=== PATIENT | male | born 1950 | race Caucasian/White ===

== ENCOUNTER 2020-12-04 15:12 | Emergency (ER) | payer MEDICARE, OTHER ==
[~2020-12-04] VITALS: Ht 157.5 cm; Wt 36.4 kg
[~2020-12-04 15:12] MED LIST: AMIT50TA3 PO; DOCU-350 PO; HYDR-4065 PO; SENN8.6T52 PO
[2020-12-04 15:39] VITALS: BP 86/56
[2020-12-04] MEDS ORDERED: SODIUM CHLORIDE 0.9% 1,000 ML IV ONE (15:45)
[2020-12-04 15:59] LABS: HEMATOCRIT 23.1 % (41-53); HEMOGLOBIN 7.4 g/dL (13.5-17.5); MEAN CORPUSCULAR HEMOGLOBIN 28.7 pg (26.0-34.0); MEAN CORPUSCULAR HGB CONC 32.1 G/dL (31.0-37.0); MEAN CORPUSCULAR VOLUME 90 fL (80-100); PLATELET COUNT (AUTO) 567 K/uL (150-450); RED BLOOD CELL COUNT(AUTO) 2.58 MIL/uL (4.50-5.90)
[2020-12-04] MEDS ORDERED: ASPIRIN 81 MG CHEWABLE TABLET PO ONE (16:15)
[2020-12-04] MEDS ORDERED: HEPARIN SODIUM,PORCINE 5,000 UNITS/ML VIAL IVP ONE (16:15)
[2020-12-04] MEDS ORDERED: HEPARIN SODIUM,PORCINE 5,000 UNITS/ML VIAL IVP PRN ×2 (16:15)
[2020-12-04] MEDS ORDERED: HEPARIN SODIUM 25000 UNITS/D5W 250 ML IV PRN (16:15)
[2020-12-04 16:25] LABS: B-TYPE NATRIURETIC PEPTIDE 169 pg/mL (0-100)
[2020-12-04] MEDS ORDERED: ASPIRIN 300 MG RECTAL SUPPOSITORY PR ONE (16:30)
[2020-12-04 16:34] LABS: COVID AG,FIA SOURCE NASOPHARYNGEAL
[2020-12-04 16:36] LABS: BAND NEUTROPHILS % (MANUAL) 30 % (0-5); LYMPHOCYTES % (MANUAL) 3 % (22-44); MONOCYTES % (MANUAL) 3 % (2-9); SEGMENTED NEUTROPHILS % 64 % (40-70)
[2020-12-04 16:45] LABS: ANION GAP 15 mmol/L (8-16); CALCIUM, TOTAL 8.6 mg/dL (8.8-10.5); CARBON DIOXIDE 24 mmol/L (22-29); CHLORIDE 101 mmol/L (98-107); CREATININE 0.97 mg/dL (0.60-1.30); GLOMERULAR FILTR. RATE CALC > 60 mL/min (>60); GLUCOSE,RANDOM 121 mg/dL (70-110); POTASSIUM 4.9 mmol/L (3.5-5.1); SODIUM SERUM 140 mmol/L (136-145); UREA NITROGEN, BLOOD 29 mg/dL (7-18)
[2020-12-04 16:50] LABS: ALANINE AMINOTRANSFERASE 16 U/L (12-78); ALBUMIN 1.7 g/dL (3.4-5.0); ALKALINE PHOSPHATASE 136 U/L (46-116); ASPARTATE AMINOTRANSFERASE 24 U/L (15-37); BILIRUBIN,TOTAL 0.6 mg/dL (0.1-1.0); CREATINE KINASE, TOTAL ONLY 74 U/L (39-308); TOTAL PROTEIN, SERUM 6.6 g/dL (6.4-8.2)
== END 2020-12-04 16:50 | disposition designated cancer center or children's hospital (05) ==
LOC: EMS 15:12
DX: I21.3 ST elevation (STEMI) myocardial infarction of unspecified site (principal); I95.9 Hypotension, unspecified; Z20.822 Contact with and (suspected) exposure to COVID-19; I48.91 Unspecified atrial fibrillation
CPT/HCPCS: 71045; 80053; 82550; 82962; 83880; 84484; 85025; 87426; 93005; 96361; 96374; 99291; J1644 ×2; J7030; 99285